=== PATIENT | female | born 1995 | race Caucasian/White ===

== ENCOUNTER 2025-01-12 07:52 | Day surgery (SDC) | payer OTHER ==
[2025-01-05 15:34] VITALS: BP 152/97
[~2025-01-12] VITALS: Ht 152.4 cm; Wt 78.2 kg
[~2025-01-12 07:52] MED LIST: ACYCLOVIR SOD1000 MG IV; CEFAZOLIN SODIUM 2 GM/20 ML SYR IV SCH; DEXAMETHASONE SOD PHOS 4 MG/ML VIAL ONE; FAMOTIDINE 20 MG/ 2 ML VIAL ONE; HEParin SOD (PORCINE) 5,000 UNIT/ML SDV SUB-Q SCH; IBLOOD GLUCOSE TEST STRIP 1 EA TEST VI PRN; KETOROLAC TROMETHAMINE 30 MG/ML VIAL ONE; LACTATED RINGER'S 1,000 ML IV ONE; LACTATED RINGER'S 1,000 ML IV SCH; LIDOCAINE HCL 1% 5 ML SDV INJ ONE; LIDOCAINE HCL 4% 5 ML AMP ONE; LISINOPRIL5 MG PO; MAGNESIUM200 MG PO; MELATONIN1 MG PO; METOCLOPRAMIDE HCL 10 MG/2 ML SDV ONE; MIDAZOLAM HCL 2 MG/2 ML VIAL ONE; OMEPRAZOLE20 MG PO; OSTERA TABLET1 EACH PO; PROBIOTIC1 EAC8 PO; RESTASIS1 DROP OD; ROCURONIUM BROMIDE 50 MG/5 ML SYR ONE; SUCCINYLCHOLINE IN 0.9% NACL 200 MG/10 ML SYRINGE ONE; SUGAMMADEX SODIUM 200 MG/2 ML ML ONE; ZYRTEC10 MG PO; [UNRECOGNIZED DRUG - OTHER]; [UNRECOGNIZED DRUG - OTHER] PO; fentaNYL citrate 100 MCG/2 ML VIAL ONE; ondansetron HCL 4 MG/2 ML VIAL ONE; propofoL 200 MG/20 ML VIAL ONE
[2025-01-12] MEDS ORDERED: VALACYCLOVIR1000 MG PO (08:27)
[2025-01-12 08:30] VITALS: BP 130/78
[2025-01-12] MEDS ORDERED: droPERidol 5 MG/2 ML VIAL IV PRN (08:30)
[2025-01-12] MEDS ORDERED: METOCLOPRAMIDE HCL 10 MG/2 ML SDV IV PRN (08:30)
[2025-01-12] MEDS ORDERED: ondansetron HCL 4 MG/2 ML VIAL IV PRN (08:30)
[2025-01-12] MEDS ORDERED: PROCHLORPERAZINE EDISYLATE 10 MG/2 ML VIAL IV PRN (08:30)
[2025-01-12] MEDS ORDERED: MORPHINE SULFATE 10 MG/ML VIAL IV PRN (08:30)
[2025-01-12] MEDS ORDERED: NALOXONE HCL 0.4 MG SYR IV PRN ×2 (08:30→12:00)
[2025-01-12] MEDS ORDERED: fentaNYL citrate 50 MCG/ML SDV IV PRN (08:30)
[2025-01-12] MEDS ORDERED: IBLOOD GLUCOSE TEST STRIP 1 EA TEST VI PRN (08:30)
[2025-01-12] MEDS ORDERED: SODIUM CHLORIDE 0.9% 40 ML IV ONE (09:50)
[2025-01-12] MEDS ORDERED: iopamidoL 30 ML VIAL ONE (09:50)
[2025-01-12] MEDS ORDERED: dexmedeTOMIDine HCl 200 MCG/2 ML VIAL ONE (10:32)
[2025-01-12] MEDS ORDERED: METOPROLOL TARTRATE 5 MG/5 ML VIAL ONE (11:42)
--- NOTE | 2025-01-12 11:48 | NUR ---
01/12/25 1148 Manish,Isatu 1138 PT ARRIVED TO PACU WITH ORAL AIRWAY AND 10L VIA MASK, ROLL CAPPER DOING JAW THRUST. VSS. O2 DECREASED TO 6L AND HEAD TURNED TO SIDE, JAW THRUST NEEDED OFF AND ON TO MAINTAIN AIRWAY. 1146 SMOOTH MEDICATION GIVEN BY ROLL CAPPER AND ON ANESTHESIA RECORD. RESP EVEN AND UNLABORED WITH NO JAW THRUST NEEDED.
[2025-01-12] MEDS ORDERED: OXYCODON-ACETA1 EAC2 PO (11:55)
[2025-01-12] MEDS ORDERED: ACETAMINOPHEN500 MG PO (11:55)
[2025-01-12] MEDS ORDERED: IBUPROFEN600 MG PO (11:55)
[2025-01-12] MEDS ORDERED: LACTATED RINGER'S 1,000 ML IV SCH (12:00)
[2025-01-12] MEDS ORDERED: ACETAMINOPHEN 500 MG TAB PO PRN (12:00)
[2025-01-12] MEDS ORDERED: IBUPROFEN 600 MG TAB PO PRN (12:00)
[2025-01-12] MEDS ORDERED: OXYCODONE/APAP 7.5/325 TAB PO PRN (12:00)
[2025-01-12 12:28] VITALS: BP 123/70
--- NOTE | 2025-01-12 12:33 | NUR ---
PATIENT BACK IN DAY SURGERY ROOM FROM PACU. RATES PAIN 5/10. DROWSY. EASILY AWAKENS TO VOICE AND ANSWERS QUESTIONS APPROPRIATELY. DECLINES PAIN MEDICATION AT THIS TIME. VS CHECKED. ABDOMINAL LAP SITES X 4 WITH STERI STRIPS. EACH LAP SITES HAS SMALL AMOUNT OF RED DRAINAGE. SCDs ON. IV SITE WNL. CALL LIGHT WITHIN REACH. FRIEND IN ROOM AT BEDSIDE.
[2025-01-12 13:35] VITALS: BP 112/60
--- NOTE | 2025-01-12 13:51 | NUR ---
PATIENT AWAKENED FOR VS CHECK. STATES PAIN IS THE SAME. PATIENT DECLINES PERCOCET FOR PAIN. WOULD LIKE PLAIN TYLENOL FOR PAIN. WILL CONTACT DR. MCKEON REGARDING TYLENOL. PATIENT HAVING REFERRED RIGHT SHOULDER PAIN. PATIENT EDUCATED THAT THIS PAIN IS FROM THE GAS USED TO EXPAND ABDOMEN DURING SURGERY. ENCOURAGED MOBILIZATION ONCE UP AND MOVING. PATIENT TOLERATING WATER. GIVEN PUDDING TO EAT. SCDs ON. IV SITE WNL. FRIEND AT BEDSIDE. CALL LIGHT WITHIN REACH.
--- NOTE | 2025-01-12 14:14 | NUR ---
PATIENT MEDICATED FOR PAIN WITH TYLENOL. RATES PAIN 5/10. NO OTHER NEEDS AT THIS TIME. FRIEND AT BEDSIDE. CALL LIGHT WITHIN REACH.
[2025-01-12 14:50] VITALS: BP 109/55
--- NOTE | 2025-01-12 15:42 | NUR ---
1450: VS CHECKED. PATIENT RATES PAIN 4/10. MORE ALERT AND AWAKE. PATIENT READY TO GET OOB. PATIENT ASSISTED OOB AND TO BATHROOM. GAIT STEADY. VOID APPROXIAMTELY 400 ML. GAIT STEADY BACK TO ROOM. PATIENT GETTING DRESSED. FRIEND IN ROOM WITH PATIENT. 1520: DISCHARGE INSTRUCTIONS GIVEN TO PATIENT AND FRIEND. 1525: IV DC'D WNL. TIP INTACT. DRESSING APPLIED. 1533: PATIENT DISCHARGED TO HOME WITH FRIEND VIA WHEELCHAIR.
[2025-01-12] MEDS ORDERED: SEVOFLURANE 250 ML BTL INH ONE (16:26)
--- NOTE | 2025-01-13 19:47 | OR ---
[facility] [address] [place], [place] [address] Signed DATE OF OPERATION: 01/12/2025 SURGEON: José Miguel Mckeon MD PREOPERATIVE DIAGNOSIS: Chronic calculous cholecystitis. POSTOPERATIVE DIAGNOSIS: Chronic calculous cholecystitis. PROCEDURES: 1. Laparoscopic cholecystectomy with intraoperative cholangiogram. 2. Surgeon-directed fluoroscopy. ANESTHESIA: General endotracheal; José Miguel Haney CRNA and local 10 mL of 0.25% Marcaine with epinephrine. 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 She is a patient of CIPRIANO Scruggs who has had rather typical biliary colic symptoms including right upper abdominal pain and epigastric pain following meals. Gallbladder ultrasound was performed on September 11, 2024 confirming at least one gallstone and probably more. Additionally, she has had episodes of umbilical drainage. Clinical evaluation in the area shows no sign of infection or other problem at this time. She is admitted at this time to undergo cholecystectomy preferably by a laparoscopic approach. She understands the risk of bleeding, infection, and recurrence. FINDINGS: There is no sign of acute inflammatory process at the umbilicus despite prior history of such things. The gallbladder was chronically inflamed with adhesions of omentum to the undersurface and local adhesions as well. The liver was visually normal. The gallbladder itself had a single large 2 cm gallstone in the infundibulum and several small stones within thick biliary sludge. Cholangiogram was normal. There were no complications to this procedure. DESCRIPTION OF PROCEDURE: The patient was brought to the operating room, given a general endotracheal anesthetic. Preoperative antibiotic Ancef was given. Sequential compression device stockings were used and heparin subcutaneously administered. The abdomen was prepared with a Electronically Signed By: JOSÉ MIGUEL MCKEON MD 01/13/251946 PATIENT NAME: LUIGI CLOUD OPERATIVE REPORT DATE OF : [birth year] REPORT #: [id number] PHYSICIAN: JOSÉ MIGUEL MCKEON MD PCP: LILIAN GALDAMEZ PA-C REPORT IS CONFIDENTIAL AND NOT TO BE RELEASED WITHOUT AUTHORIZATION [facility] [address] [place], [place] [address] Signed chlorhexidine solution and draped sterilely. An infraumbilical incision was made after close inspection showed no sign of acute process. Dissection was carried through the subcutaneous tissue and the midline fascia inferior to the umbilicus, incised and opened and using an open Lulú cannula technique pneumoperitoneum was achieved to a level of 14 mmHg of carbon dioxide gas. Intra-abdominal inspection showed no sign of ascites or carcinomatosis. Gallbladder was visualized and was chronically inflamed. Three additional trocars were placed in their usual configuration in the subxiphoid, right midclavicular, and right anterior axillary line. The gallbladder was elevated cephalad and found to have chronic inflammatory adhesions to its undersurface, these were taken down with blunt and electrocautery dissection. of the lower segment of the gallbladder containing a single large gallstone was noted. This was straightened and using blunt and electrocautery dissection the triangle of Calot was dissected free identifying well the cystic duct. A clip was applied across the gallbladder cystic duct junction and a transverse choledochotomy made in the cystic duct. Egress of clear bile was noted. Using an Milian type cholangiocatheter, intraoperative cholangiography was undertaken showing free flow of contrast into the biliary tree with prompt emptying into the duodenum. There was no sign of filling defect or other problem. The catheter was removed and the cystic duct was triply clipped and divided and gallbladder then dissected free in a retrograde fashion using electrocautery. Some bleeding in the bed of the liver was secured with electrocautery, it was venous. Gallbladder was extracted after being placed in an endobag, opened on the back table and found to have chronic inflammatory change of the mucosa and a dominant large gallstone with several much smaller gallstones and thick dark tar like bile. There was no sign of neoplasm. Irrigation was undertaken in the subhepatic space. There was no sign of bile leak, bleeding or other problems. To be safe as regard to bleeding, Geoffrey was applied to the hepatic fossa. The trocars were removed under direct visualization showing no sign of bleeding. The infraumbilical fascial incision was reapproximated with interrupted 0 Vicryl suture. A 10 mL of 0.25% Marcaine with epinephrine was injected locally. The skin was then closed with interrupted 3-0 Vicryl. Steri-Strips were applied. The patient was ultimately extubated and transferred to the recovery room in good condition having suffered no complication. Sponge, needle, and instrument counts were reported as correct x3. José Miguel Mckeon MD Electronically Signed By: JOSÉ MIGUEL MCKEON MD 01/13/25 1947 PATIENT NAME: LUIGI CLOUD OPERATIVE REPORT DATE OF : [birth year] REPORT #: [id number] PHYSICIAN: JOSÉ MIGUEL MCKEON MD PCP: LILIAN GALDAMEZ PA-C REPORT IS CONFIDENTIAL AND NOT TO BE RELEASED WITHOUT AUTHORIZATION [facility] [address] [place], [place] [address] Signed /PLACIDO /[id number] cc: Lilian Galdamez PA-C Copies: LILIAN GALDAMEZ PA-C ~ Electronically Signed By: JOSÉ MIGUEL MCKEON MD 01/13/25 1947 PATIENT NAME: LUIGI CLOUD OPERATIVE REPORT DATE OF : [birth year] REPORT #: [id number] PHYSICIAN: JOSÉ MIGUEL MCKEON MD PCP: LILIAN GALDAMEZ PA-C REPORT IS CONFIDENTIAL AND NOT TO BE RELEASED WITHOUT AUTHORIZATION
--- NOTE | 2025-01-14 09:39 | PATH ---
[facility] [address] [place], [place] [address] Signed SPECIMEN(S): A GALLBLADDER AND STONES SPECIMEN SOURCE: A. GALLBLADDER AND STONES CLINICAL HISTORY: Chronic cholecystitis with calculus FINAL PATHOLOGIC DIAGNOSIS: Gallbladder, cholecystectomy: - Chronic calculous cholecystitis BRP MICROSCOPIC EXAMINATION: Histologic sections of all submitted blocks are examined by light microscopy. These findings, together with the gross examination, support the pathologic diagnosis. GROSS DESCRIPTION: The specimen, labeled and designated "Karsten Menchaca, gallbladder stones per requisition," is received in formalin and consists of Specimen: Disrupted gallbladder. Dimensions: 9.5 x 4.3 x 0.5 cm. Serosa: Blue-green and smooth. Cystic Duct: Unobstructed. Calculi: Present�black and rounded measuring 2.3 cm in greatest dimension. Mucosa: Ribera and velvety with light yellow flecking. Wall thickness: 0.3-0.4 cm. Lymph node: No pericystic lymph nodes are grossly identified. Additional: None. Movie Shot Cameraman sections are submitted in (A1). AA (under the direct supervision of a pathologist) The Gross Description was prepared using a voice recognition system. The report was reviewed for accuracy; however, sound-alike word errors, addition and/or deletions may occur. If there is any question about this report, please contact Client Services. ADDITIONAL NOTES: Immunohistochemical and/or in situ hybridization studies if performed in this case included appropriate positive controls that reacted as expected. This test was developed and its performance PATIENT NAME: LUIGI MENCHACA PATHOLOGY DATE OF : [birth year] REPORT #: [id number] PHYSICIAN: SIM DUVALL PCP: DILLON YOUNG PA-C REPORT IS CONFIDENTIAL AND NOT TO BE RELEASED WITHOUT AUTHORIZATION [facility] [address] [facility] [place] [address] Signed characteristics determined by [facility]. It has not been cleared or approved by the U.S. Food and Drug Administration. The FDA has determined that such clearance or approval is not necessary. This test is used for clinical purposes. It should not be regarded as investigational or for research. [facility] is certified under the Clinical Laboratory Improvement Amendments of 1988 (CLIA) as qualified to perform high complexity clinical laboratory testing. PERFORMING LABORATORY: Technical component was performed by [facility], [address] [place] [id number] (CLIA# [id number]). Professional interpretation was performed by [facility], [address] [place] [address] (CLIA#:[id number]). Diagnostician: Manuel Kasper MD Pathologist Electronically Signed 01/14/2025 Copies: ~ PATIENT NAME: LUIGI MENCHACA PATHOLOGY DATE OF : [birth year] REPORT #: [id number] PHYSICIAN: SIM PATHOLOGY PCP: DILLON YOUNG PA-C REPORT IS CONFIDENTIAL AND NOT TO BE RELEASED WITHOUT AUTHORIZATION
== END 2025-01-12 15:33 | disposition home or self-care (01) ==
LOC: DS 07:52
PROVIDERS: ATTEND Surgery
PROC: 0FT44ZZ Resection of Gallbladder, Percutaneous Endoscopic Approach (ICD-10-PCS; principal; 2025-01-12 09:35)
DX: K80.10 Calculus of gallbladder with chronic cholecystitis without obstruction (principal); K66.0 Peritoneal adhesions (postprocedural) (postinfection); E28.2 Polycystic ovarian syndrome; I10 Essential (primary) hypertension; Z79.899 Other long term (current) drug therapy
CPT/HCPCS: 00790; 74300; A9270; J0330; J0690; J1100; J1644; J1885; J2250; J2405; J2704; J2765; J3010; J3490; J7121; Q9967